=== PATIENT | male | born 1960 | race African-American/Black ===

== ENCOUNTER 2023-03-10 10:42 | Day surgery (SDC) | payer OTHER ==
[2023-03-09 09:36] VITALS: BMI 45.1
[2023-03-10 13:31] VITALS: TEMP 98
[2023-03-10 13:43] VITALS: BP 148/88; PULSE 76; RESP 18
== END 2023-03-10 13:52 | disposition home or self-care (01) ==
LOC: FASU-ENDO 10:42
PROVIDERS: ATTEND Internal Medicine Gastroenterology
PROC: 0DB68ZX Excision of Stomach, Via Natural or Artificial Opening Endoscopic, Diagnostic (ICD-10-PCS; 2023-03-10)
PROC: 0DB48ZX Excision of Esophagogastric Junction, Via Natural or Artificial Opening Endoscopic, Diagnostic (ICD-10-PCS; 2023-03-10)
PROC: 0DB98ZX Excision of Duodenum, Via Natural or Artificial Opening Endoscopic, Diagnostic (ICD-10-PCS; principal; 2023-03-10 13:08)
DX: K29.50 Unspecified chronic gastritis without bleeding (principal); K31.9 Disease of stomach and duodenum, unspecified; R10.13 Epigastric pain
CPT/HCPCS: 88305-TC; 88342-TC